=== PATIENT | female | born 1945 | race African-American/Black ===

== ENCOUNTER 2021-05-27 21:24 | Inpatient (IN) ==
[2021-05-27] MEDS: NOREPINEPHRINE 16 MG in SODIUM CHLORIDE 0.9% 234 ML IV PRN (21:30)
[2021-05-27] MEDS ORDERED: NOREPINEPHRINE 4 MG/4 ML VIAL IV ONE (21:48)
[2021-05-27 23:07] LABS: ABG Base Excess -11.3 MMOL/L (-2.5-2.5); ABG HCO3 15.3 MMOL/L (20-26); ABG Oxygen Saturation 92.7 % (95-100); ABG PH 7.415 (7.35-7.45); ABG PO2 67.7 MM HG (80-95); ABG TCO2 11.3 MMOL/L (23-27)
[2021-05-27 23:11] LABS: ABG PCO2 18.8 MM HG (35-48)
[2021-05-28 00:25] LABS: Hematocrit 29.4 VOL% (35.7-47.0); Hemoglobin 8.7 GM/DL (12.0-16.0); Immature Granulocytes % 1.1 %; Immature Granulocytes Absolute 0.04 #; Lymphocytes # 0.7 10*3/uL (1.4-4.0); Lymphocytes % 19.1 % (21.3-54.2); Mean Corpuscular HGB Conc 29.6 GM/DL (32-36); Mean Corpuscular Volume 102.4 FL (87-102); Mean Platelet Volume 10.3 FL (9.6-12.0); Monocytes % 2.7 % (1.7-12.7); NRBC # 0.09 10*3/uL; Neutrophils % 77.1 % (38.7-73.9); Platelet Count 90 T/CUMM (130-400); Red Blood Count 2.87 MC/CUMM (3.8-5.5); Red Cell Distribution Width 23.2 % (9.3-17.3); White Blood Count 3.7 T/CUMM (4-12)
[2021-05-28 00:35] LABS: Albumin 1.7 G/DL (3.4-5.0); Bilirubin,Total 0.7 MG/DL (0.20-1.00); Calcium 8.2 MG/DL (8.5-10.1); Potassium 2.6 MMOL/L (3.5-5.1)
[2021-05-28] MEDS ORDERED: ALBUTEROL 2.5 MG/3 ML NEB RESP TX PRN (01:20)
[2021-05-28] MEDS ORDERED: ONDANSETRON 4 MG/2 ML VIAL IV PRN (01:20)
[2021-05-28] MEDS ORDERED: PIPERACILLIN/TAZOBACTAM 3,375 MG in SODIUM CHLORIDE 0.9% 100 ML IV SCH (02:00)
[2021-05-28] MEDS ORDERED: POTASSIUM CHLORIDE 20 MEQ TABLET PO STA (02:32)
[2021-05-28 04:21] LABS: Band Neutrophils 6 % (0-10); Lymphocytes 23 % (20-55); Metamyelocytes 6 %; Myelocytes 1 %; Nucleated Red Blood Cells 1 (0-5); Segmented Neutrophils 60 % (50-85); Total Cells Counted 100
[2021-05-28 04:22] LABS: Hypochromasia 1+; Macrocytosis 1+; Ovalocytes Slight
[2021-05-28 04:23] LABS: Polychromasia Slight
[2021-05-28] MEDS ORDERED: ACETAMINOPHEN 325 MG TABLET PO PRN (06:16)
[2021-05-28 06:22] LABS: ABG HCO3 12.3 MMOL/L (20-26); ABG Oxygen Saturation 99.1 % (95-100); ABG PH 7.328 (7.35-7.45); ABG TCO2 8.2 MMOL/L (23-27)
[2021-05-28 06:24] LABS: ABG PCO2 16.8 MM HG (35-48)
[2021-05-28] MEDS ORDERED: SODIUM BICARBONATE 50 MEQ/50 ML VIAL IV STA (06:30)
[2021-05-28] MEDS ORDERED: NOREPINEPHRINE 4 MG/4 ML VIAL IV ONE (07:25)
[2021-05-28] MEDS: ALBUTEROL/IPRATROPIUM 3 ML NEB RESP TX SCH ×3 (07:33→20:09)
[2021-05-28] MEDS ORDERED: POTASSIUM CHLORIDE RIDER 10 MEQ/100 ML PREMIX IV PRN (08:34)
[2021-05-28] MEDS: NOREPINEPHRINE 8 MG in SODIUM CHLORIDE 0.9% 242 ML IV PRN ×2 (09:39→10:50)
[2021-05-28] MEDS: ASPIRIN CHEW 81 MG TABLET PO SCH (09:54)
[2021-05-28] MEDS: ROSUVASTATIN 20 MG TABLET PO SCH (09:54)
[2021-05-28] MEDS: methylPREDNISolone SOD SUC 40 MG/1 ML VIAL IV SCH ×2 (09:54→22:32)
[2021-05-28] MEDS: SEVELAMER CARBONATE 800 MG TABLET PO SCH ×3 (09:54→22:32)
[2021-05-28] MEDS ORDERED: POTASSIUM CHLORIDE 20 MEQ TABLET PO ONE (10:00)
[2021-05-28] MEDS ORDERED: NOREPINEPHRINE 16 MG in SODIUM CHLORIDE 0.9% 484 ML IV PRN (10:00)
[2021-05-28] MEDS ORDERED: SODIUM CHLORIDE 0.9% 250 ML IV ONE (10:30)
[2021-05-28] MEDS: INSULIN LISPRO 100 UNIT/ML SUBCUT SCH ×3 (11:49→21:14)
[2021-05-28 11:53] LABS: Basophils % 0.1 % (0.0-0.8); Eosinophils # 0.5 10*3/uL (0.0-0.87); Immature Granulocytes % 1.8 %; Immature Granulocytes Absolute 0.17 #; Lymphocytes # 1.2 10*3/uL (1.4-4.0); Lymphocytes % 12.6 % (21.3-54.2); Mean Corpuscular Volume 95.4 FL (87-102); Mean Platelet Volume 11.8 FL (9.6-12.0); Monocytes % 1.7 % (1.7-12.7); NRBC # 0.24 10*3/uL; Neutrophils % 78.8 % (38.7-73.9); Platelet Count 94 T/CUMM (130-400); Red Blood Count 2.62 MC/CUMM (3.8-5.5); Red Cell Distribution Width 23.2 % (9.3-17.3); White Blood Count 9.3 T/CUMM (4-12)
[2021-05-28 12:14] LABS: Band Neutrophils 16 % (0-10); Hypochromasia Slight; Lymphocytes 17 % (20-55); Metamyelocytes 2 %; Nucleated Red Blood Cells 3 (0-5); Segmented Neutrophils 54 % (50-85); Total Cells Counted 100
[2021-05-28 12:15] LABS: Ovalocytes Few; Polychromasia Slight
[2021-05-28 12:17] LABS: Acanthocytes Few; Anisocytosis 1+; Burr Cells Few; Macrocytosis 1+; Platelet Estimate Decreased
[2021-05-28 12:22] LABS: Calcium 7.7 MG/DL (8.5-10.1); Osmolality,Calculated 289.7 MOS/KG (273-304)
[2021-05-28 12:24] LABS: Potassium 2.3 MMOL/L (3.5-5.1)
[2021-05-28] MEDS ORDERED: POTASSIUM BICARB EFFERVESCENT 20 MEQ TAB.EFF PO ONE (13:00)
[2021-05-28 13:24] LABS: Hepatitis B Core IgM Quant 0.15 Index; Hepatitis B Surface Ag Quant < 0.10 Index; Hepatitis B Surface Ag Result Non-Reactive (NonReactive); Hepatitis C Virus Ab Quant 0.05 Index; Hepatitis C Virus Ab Result Non-Reactive (NonReactive)
[2021-05-28 14:54] LABS: ABG Base Excess -11.7 MMOL/L (-2.5-2.5); ABG HCO3 14.8 MMOL/L (20-26); ABG PCO2 22.9 MM HG (35-48); ABG PH 7.357 (7.35-7.45); ABG PO2 43.2 MM HG (80-95); ABG TCO2 12.3 MMOL/L (23-27)
[2021-05-28] MEDS ORDERED: ZINC OXIDE PASTE 113 GM TUBE TOP PRN (15:12)
[2021-05-28] MEDS: SODIUM BICARB INJ 150 MEQ in DEXTROSE 5% 850 ML IV SCH (15:50)
[2021-05-28] MEDS: CEFEPIME 1,000 MG in SODIUM CHLORIDE 0.9% 100 ML IV SCH (16:00)
[2021-05-28] MEDS ORDERED: SODIUM BICARBONATE 50 MEQ/50 ML VIAL IV ONE (16:07)
[2021-05-28] MEDS ORDERED: DIGOXIN 0.5 MG/2 ML AMP IV ONE ×2 (16:07→17:55)
[2021-05-28] MEDS ORDERED: METOPROLOL TARTRATE 5 MG/5 ML VIAL IV ONE ×2 (16:10→16:15)
[2021-05-28] MEDS ORDERED: DEXTROSE 50% 25 GM/50 ML VIAL IV ONE (16:41)
[2021-05-28] MEDS: DEXTROSE 50% 25 GM/50 ML VIAL IV PRN ×2 (16:46→20:11)
[2021-05-28] MEDS ORDERED: HEPARIN 10,000 UNIT/10 ML VIAL IV ONE (18:15)
[2021-05-28] MEDS: NOREPINEPHRINE 16 MG in SODIUM CHLORIDE 0.9% 234 ML IV PRN ×2 (18:17→23:51)
[2021-05-28 23:20] LABS: ABG Base Excess -7.2 MMOL/L (-2.5-2.5); ABG HCO3 18.5 MMOL/L (20-26); ABG Oxygen Saturation 99.8 % (95-100); ABG PCO2 22.9 MM HG (35-48); ABG PH 7.449 (7.35-7.45); ABG TCO2 14.9 MMOL/L (23-27)
[2021-05-29] MEDS: METOPROLOL TARTRATE 5 MG/5 ML VIAL IV PRN ×2 (00:39→19:32)
[2021-05-29] MEDS: ALBUTEROL/IPRATROPIUM 3 ML NEB RESP TX SCH ×4 (01:26→19:47)
[2021-05-29] MEDS ORDERED: POTASSIUM CHLORIDE RIDER 20 MEQ/100 ML PREMIX IV ONE (02:07)
[2021-05-29] MEDS: POTASSIUM CHLORIDE RIDER 20 MEQ/100 ML PREMIX IV PRN ×2 (02:15→05:55)
[2021-05-29 05:16] LABS: ABG Base Excess -6.5 MMOL/L (-2.5-2.5); ABG Oxygen Saturation 96.1 % (95-100); ABG PCO2 22.5 MM HG (35-48); ABG PH 7.471 (7.35-7.45); ABG PO2 75.3 MM HG (80-95); ABG TCO2 15.5 MMOL/L (23-27)
[2021-05-29] MEDS ORDERED: NOREPINEPHRINE 4 MG/4 ML VIAL IV ONE (05:20)
[2021-05-29] MEDS: NOREPINEPHRINE 16 MG in SODIUM CHLORIDE 0.9% 234 ML IV PRN ×3 (05:27→16:15)
[2021-05-29] MEDS: SODIUM BICARB INJ 150 MEQ in DEXTROSE 5% 850 ML IV SCH (05:28)
[2021-05-29 05:48] LABS: Albumin 1.3 G/DL (3.4-5.0); Bilirubin,Total 1.3 MG/DL (0.20-1.00); Calcium 7.2 MG/DL (8.5-10.1); Potassium 4.1 MMOL/L (3.5-5.1); Total Protein 4.2 G/DL (6.4-8.2)
[2021-05-29] MEDS: ASPIRIN CHEW 81 MG TABLET PO SCH (08:42)
[2021-05-29] MEDS: INSULIN LISPRO 100 UNIT/ML SUBCUT SCH ×4 (08:42→22:01)
[2021-05-29] MEDS: ROSUVASTATIN 20 MG TABLET PO SCH (08:42)
[2021-05-29] MEDS: methylPREDNISolone SOD SUC 40 MG/1 ML VIAL IV SCH ×2 (08:42→22:15)
[2021-05-29] MEDS: SEVELAMER CARBONATE 800 MG TABLET PO SCH ×3 (08:42→22:03)
[2021-05-29 09:13] LABS: ABG Base Excess -5.9 MMOL/L (-2.5-2.5); ABG HCO3 16.9 MMOL/L (20-26); ABG Oxygen Saturation 97.7 % (95-100); ABG PCO2 23.3 MM HG (35-48); ABG PH 7.478 (7.35-7.45); ABG PO2 97.3 MM HG (80-95); ABG TCO2 17.6 MMOL/L (23-27)
[2021-05-29] MEDS ORDERED: MAGNESIUM SULF RIDER 2 GM/50 ML PREMIX IV ONE (10:17)
[2021-05-29] MEDS: AZITHROMYCIN INJ 500 MG in SODIUM CHLORIDE 0.9% 250 ML IV SCH (13:21)
[2021-05-29] MEDS: ALBUMIN 25% 25 GM/100 ML VIAL IV SCH ×2 (13:21→22:01)
[2021-05-29] MEDS: CEFEPIME 1,000 MG in SODIUM CHLORIDE 0.9% 100 ML IV SCH (14:30)
[2021-05-29] MEDS ORDERED: SODIUM PHOSPHATE INJ 30 MMOL in SODIUM CHLORIDE 0.9% 250 ML IV ONE (15:00)
[2021-05-29] MEDS: DIGOXIN 0.125 MG TABLET PO SCH (15:41)
[2021-05-30] MEDS: ALBUTEROL/IPRATROPIUM 3 ML NEB RESP TX SCH ×4 (01:20→19:00)
[2021-05-30] MEDS: SODIUM BICARB INJ 150 MEQ in DEXTROSE 5% 850 ML IV SCH (02:30)
[2021-05-30] MEDS: METOPROLOL TARTRATE 5 MG/5 ML VIAL IV PRN (02:30)
[2021-05-30 05:24] LABS: ABG HCO3 23.9 MMOL/L (20-26); ABG Oxygen Saturation 96.4 % (95-100); ABG PCO2 34.6 MM HG (35-48); ABG PH 7.458 (7.35-7.45); ABG PO2 86.9 MM HG (80-95)
[2021-05-30] MEDS: ALBUMIN 25% 25 GM/100 ML VIAL IV SCH (05:30)
[2021-05-30] MEDS: NOREPINEPHRINE 16 MG in SODIUM CHLORIDE 0.9% 234 ML IV PRN ×2 (06:05→15:05)
[2021-05-30 06:10] LABS: Albumin 2.2 G/DL (3.4-5.0); Osmolality,Calculated 289.1 MOS/KG (273-304); Potassium 3.8 MMOL/L (3.5-5.1); Total Protein 4.7 G/DL (6.4-8.2)
[2021-05-30 06:12] LABS: Basophils % 0.1 % (0.0-0.8); Immature Granulocytes % 3.6 %; Immature Granulocytes Absolute 0.64 #; Lymphocytes # 0.8 10*3/uL (1.4-4.0); Lymphocytes % 4.5 % (21.3-54.2); Mean Corpuscular HGB Conc 32.1 GM/DL (32-36); Mean Corpuscular Volume 95.5 FL (87-102); Mean Platelet Volume 11.7 FL (9.6-12.0); Monocytes % 4.2 % (1.7-12.7); NRBC # 0.16 10*3/uL; Neutrophils % 87.6 % (38.7-73.9); Platelet Count 56 T/CUMM (130-400); Red Blood Count 1.76 MC/CUMM (3.8-5.5); Red Cell Distribution Width 22.9 % (9.3-17.3); White Blood Count 17.9 T/CUMM (4-12)
[2021-05-30 06:14] LABS: Hematocrit 16.8 VOL% (35.7-47.0); Hemoglobin 5.4 GM/DL (12.0-16.0)
[2021-05-30 06:23] LABS: Band Neutrophils 4 % (0-10); Hypochromasia 2+; Lymphocytes 6 % (20-55); Microcytosis 1+; Nucleated Red Blood Cells 3 (0-5); Ovalocytes Slight; Platelet Estimate Decreased; Segmented Neutrophils 87 % (50-85); Total Cells Counted 100
[2021-05-30] MEDS: INSULIN LISPRO 100 UNIT/ML SUBCUT SCH ×4 (08:50→21:04)
[2021-05-30] MEDS: ASPIRIN CHEW 81 MG TABLET PO SCH (08:50)
[2021-05-30] MEDS: SEVELAMER CARBONATE 800 MG TABLET PO SCH ×3 (08:50→21:05)
[2021-05-30] MEDS: ROSUVASTATIN 20 MG TABLET PO SCH (08:50)
[2021-05-30] MEDS: methylPREDNISolone SOD SUC 40 MG/1 ML VIAL IV SCH ×2 (09:38→21:05)
[2021-05-30] MEDS ORDERED: SODIUM CHLORIDE 0.9% IV ONE (12:00)
[2021-05-30] MEDS ORDERED: POTASSIUM PHOSPHATE 30 MMOL in SODIUM CHLORIDE 0.9% 250 ML IV ONE (12:00)
[2021-05-30] MEDS ORDERED: POTASSIUM PHOSPHATE IV ONE (12:00)
[2021-05-30] MEDS: AZITHROMYCIN INJ 500 MG in SODIUM CHLORIDE 0.9% 250 ML IV SCH (13:50)
[2021-05-30] MEDS: DIGOXIN 0.125 MG TABLET PO SCH (13:50)
[2021-05-30] MEDS ORDERED: CALCIUM GLUCONATE 1,000 MG in SODIUM CHLORIDE 0.9% 100 ML IV ONE (14:00)
[2021-05-30 15:22] LABS: INR 1.5; PT Patient Result 16.7 SECS (10.5-12.0)
[2021-05-30] MEDS: CEFEPIME 1,000 MG in SODIUM CHLORIDE 0.9% 100 ML IV SCH (16:36)
[2021-05-30] MEDS ORDERED: HEPARIN 10,000 UNIT/10 ML VIAL IV ONE (17:30)
[2021-05-30 18:29] LABS: Hematocrit 31.2 VOL% (35.7-47.0); Hemoglobin 10.2 GM/DL (12.0-16.0)
[2021-05-31] MEDS: ALBUTEROL/IPRATROPIUM 3 ML NEB RESP TX SCH ×4 (00:55→20:15)
[2021-05-31] MEDS: NOREPINEPHRINE 16 MG in SODIUM CHLORIDE 0.9% 234 ML IV PRN ×2 (01:16→11:19)
[2021-05-31 04:30] LABS: ABG Base Excess 5.7 MMOL/L (-2.5-2.5); ABG HCO3 29.5 MMOL/L (20-26); ABG Oxygen Saturation 91.6 % (95-100); ABG PCO2 37.7 MM HG (35-48); ABG PH 7.497 (7.35-7.45); ABG PO2 58.9 MM HG (80-95); ABG TCO2 26.9 MMOL/L (23-27)
[2021-05-31 04:45] LABS: Basophils # 0.1 10*3/uL (0.0-0.2); Basophils % 0.3 % (0.0-0.8); Eosinophils % 0.2 % (0.00-10.9); Hematocrit 26.8 VOL% (35.7-47.0); Hemoglobin 8.6 GM/DL (12.0-16.0); Immature Granulocytes % 8.8 %; Immature Granulocytes Absolute 1.47 #; Lymphocytes % 5.7 % (21.3-54.2); Mean Corpuscular HGB Conc 32.1 GM/DL (32-36); Mean Corpuscular Volume 90.5 FL (87-102); Mean Platelet Volume 12.4 FL (9.6-12.0); Monocytes % 6.7 % (1.7-12.7); NRBC # 0.31 10*3/uL; Neutrophils % 78.3 % (38.7-73.9); Red Blood Count 2.96 MC/CUMM (3.8-5.5); Red Cell Distribution Width 18.8 % (9.3-17.3); White Blood Count 16.8 T/CUMM (4-12)
[2021-05-31 04:46] LABS: Platelet Count 45 T/CUMM (130-400)
[2021-05-31 05:02] LABS: Lymphocytes 5 % (20-55); Nucleated Red Blood Cells 2 (0-5); Segmented Neutrophils 91 % (50-85); Total Cells Counted 100
[2021-05-31 05:03] LABS: Hypochromasia 1+; Microcytosis 1+; Ovalocytes Slight; Platelet Estimate Decreased
[2021-05-31 05:24] LABS: Bilirubin,Total 1.6 MG/DL (0.20-1.00); Calcium 6.7 MG/DL (8.5-10.1); Osmolality,Calculated 285.1 MOS/KG (273-304); Potassium 4.1 MMOL/L (3.5-5.1); Total Protein 4.8 G/DL (6.4-8.2)
[2021-05-31] MEDS ORDERED: ROCURONIUM 500 MG in SODIUM CHLORIDE 0.9% 500 ML IV PRN (06:47)
[2021-05-31] MEDS: INSULIN LISPRO 100 UNIT/ML SUBCUT SCH ×4 (08:23→21:10)
[2021-05-31] MEDS: SEVELAMER CARBONATE 800 MG TABLET PO SCH ×3 (09:35→21:11)
[2021-05-31] MEDS: methylPREDNISolone SOD SUC 40 MG/1 ML VIAL IV SCH ×2 (09:35→21:10)
[2021-05-31] MEDS: ROSUVASTATIN 20 MG TABLET PO SCH (09:35)
[2021-05-31] MEDS: ASPIRIN CHEW 81 MG TABLET PO SCH (09:35)
[2021-05-31] MEDS ORDERED: CALCIUM GLUCONATE 1,000 MG in SODIUM CHLORIDE 0.9% 100 ML IV ONE (10:00)
[2021-05-31] MEDS ORDERED: POTASSIUM PHOSPHATE 30 MMOL in SODIUM CHLORIDE 0.9% 250 ML IV ONE (11:00)
[2021-05-31] MEDS: DIGOXIN 0.125 MG TABLET PO SCH (14:00)
[2021-05-31] MEDS: AZITHROMYCIN INJ 500 MG in SODIUM CHLORIDE 0.9% 250 ML IV SCH (14:00)
[2021-05-31 15:01] VITALS: BP 124/60
[2021-05-31 15:47] LABS: Glucose,CSF 121 MG/DL (40-70)
[2021-05-31 15:54] LABS: Appearance,CSF Clear; Lymphocytes,CSF 20 %; Monocytes,CSF 80 %; Red Blood Cell,CSF < 1 C/CUMM; White Blood Cell,CSF 5 C/CUMM
[2021-05-31] MEDS: CEFEPIME 1,000 MG in SODIUM CHLORIDE 0.9% 100 ML IV SCH (16:25)
[2021-06-01] MEDS: ALBUTEROL/IPRATROPIUM 3 ML NEB RESP TX SCH ×5 (00:10→18:14)
[2021-06-01] MEDS: NOREPINEPHRINE 16 MG in SODIUM CHLORIDE 0.9% 234 ML IV PRN ×2 (01:40→18:44)
[2021-06-01 05:06] LABS: ABG Base Excess 0.8 MMOL/L (-2.5-2.5); ABG HCO3 25.1 MMOL/L (20-26); ABG Oxygen Saturation 92.5 % (95-100); ABG PCO2 37.2 MM HG (35-48); ABG PH 7.434 (7.35-7.45); ABG PO2 63.5 MM HG (80-95); ABG TCO2 23.2 MMOL/L (23-27)
[2021-06-01 05:18] LABS: Basophils % 0.2 % (0.0-0.8); Eosinophils % 0.1 % (0.00-10.9); Hematocrit 25.7 VOL% (35.7-47.0); Hemoglobin 8.4 GM/DL (12.0-16.0); Immature Granulocytes % 6.3 %; Immature Granulocytes Absolute 0.85 #; Lymphocytes # 0.7 10*3/uL (1.4-4.0); Lymphocytes % 5.3 % (21.3-54.2); Mean Corpuscular HGB Conc 32.7 GM/DL (32-36); Mean Corpuscular Volume 92.4 FL (87-102); Mean Platelet Volume 11.5 FL (9.6-12.0); Monocytes % 7.5 % (1.7-12.7); NRBC # 0.35 10*3/uL; Neutrophils % 80.6 % (38.7-73.9); Platelet Count 43 T/CUMM (130-400); Red Blood Count 2.78 MC/CUMM (3.8-5.5); Red Cell Distribution Width 18.9 % (9.3-17.3); White Blood Count 13.6 T/CUMM (4-12)
[2021-06-01 05:38] LABS: Calcium 6.2 MG/DL (8.5-10.1); Osmolality,Calculated 292.1 MOS/KG (273-304); Potassium 4.5 MMOL/L (3.5-5.1)
[2021-06-01 05:54] LABS: Anisocytosis 3+; Band Neutrophils 21 % (0-10); Lymphocytes 8 % (20-55); Nucleated Red Blood Cells 4 (0-5); Platelet Estimate Decreased; Segmented Neutrophils 66 % (50-85); Smudge Cells Few; Target Cells Few; Total Cells Counted 100
[2021-06-01 05:55] LABS: Toxic Granulation 1+
[2021-06-01 05:56] LABS: Macrocytosis 1+; Ovalocytes Few; Polychromasia Slight
[2021-06-01] MEDS: INSULIN LISPRO 100 UNIT/ML SUBCUT SCH ×4 (08:00→21:38)
[2021-06-01] MEDS: ASPIRIN CHEW 81 MG TABLET PO SCH (08:00)
[2021-06-01] MEDS: ROSUVASTATIN 20 MG TABLET PO SCH (08:00)
[2021-06-01] MEDS: SEVELAMER CARBONATE 800 MG TABLET PO SCH ×3 (08:00→21:56)
[2021-06-01] MEDS: methylPREDNISolone SOD SUC 40 MG/1 ML VIAL IV SCH ×2 (08:01→21:55)
[2021-06-01] MEDS: MICAFUNGIN 100 MG in SODIUM CHLORIDE 0.9% 100 ML IV SCH (08:55)
[2021-06-01] MEDS: INSULIN GLARGINE 100 UNIT/ML SUBCUT SCH (08:55)
[2021-06-01 12:36] LABS: VDRL Spinal Fluid Negative (Negative)
[2021-06-01] MEDS: DIGOXIN 0.125 MG TABLET PO SCH (13:10)
[2021-06-01] MEDS: AZITHROMYCIN INJ 500 MG in SODIUM CHLORIDE 0.9% 250 ML IV SCH (13:11)
[2021-06-01] MEDS: CEFEPIME 1,000 MG in SODIUM CHLORIDE 0.9% 100 ML IV SCH (15:51)
[2021-06-01] MEDS ORDERED: CALCIUM GLUCONATE 1,000 MG in SODIUM CHLORIDE 0.9% 100 ML IV ONE ×2 (16:59→17:03)
[2021-06-01] MEDS ORDERED: CALCIUM GLUCONATE 1,000 MG/10 ML VIAL IV ONE (16:59)
[2021-06-01] MEDS: CALCIUM CHLORIDE 1,000 MG/10 ML SYRINGE IV ONE ×2 (17:03→17:26)
[2021-06-01 17:16] LABS: Basophils % 0.2 % (0.0-0.8); Hematocrit 27.4 VOL% (35.7-47.0); Hemoglobin 8.6 GM/DL (12.0-16.0); Immature Granulocytes % 5.8 %; Immature Granulocytes Absolute 0.82 #; Lymphocytes # 0.6 10*3/uL (1.4-4.0); Lymphocytes % 4.2 % (21.3-54.2); Mean Corpuscular HGB Conc 31.4 GM/DL (32-36); Mean Corpuscular Volume 93.8 FL (87-102); Mean Platelet Volume 11.7 FL (9.6-12.0); Monocytes % 5.9 % (1.7-12.7); NRBC # 0.39 10*3/uL; Neutrophils % 83.9 % (38.7-73.9); Red Blood Count 2.92 MC/CUMM (3.8-5.5); Red Cell Distribution Width 19.4 % (9.3-17.3); White Blood Count 14.1 T/CUMM (4-12)
[2021-06-01 17:18] LABS: Platelet Count 53 T/CUMM (130-400)
[2021-06-01 17:45] LABS: Band Neutrophils 6 % (0-10); Lymphocytes 4 % (20-55); Metamyelocytes 2 %; Nucleated Red Blood Cells 8 (0-5); Segmented Neutrophils 82 % (50-85); Total Cells Counted 100
[2021-06-01 17:46] LABS: Platelet Estimate Decreased; Polychromasia 1+; Toxic Granulation 1+
[2021-06-01 17:47] LABS: Anisocytosis 2+; Macrocytosis 2+; Microcytosis 1+; Schistocytes Slight
[2021-06-01 17:48] LABS: Poikilocytosis Slight
[2021-06-01 17:56] LABS: Albumin 1.8 G/DL (3.4-5.0); Bilirubin,Total 0.6 MG/DL (0.20-1.00); Calcium 7.6 MG/DL (8.5-10.1); Osmolality,Calculated 275.7 MOS/KG (273-304)
[2021-06-01] MEDS: POTASSIUM CHLORIDE RIDER 20 MEQ/100 ML PREMIX IV PRN ×2 (18:16→21:56)
[2021-06-01] MEDS: METOPROLOL TARTRATE 5 MG/5 ML VIAL IV PRN (21:55)
[2021-06-02 04:18] LABS: Basophils % 0.2 % (0.0-0.8); Hematocrit 28.5 VOL% (35.7-47.0); Hemoglobin 9.1 GM/DL (12.0-16.0); Immature Granulocytes % 5.2 %; Immature Granulocytes Absolute 0.65 #; Lymphocytes # 0.6 10*3/uL (1.4-4.0); Lymphocytes % 4.4 % (21.3-54.2); Mean Corpuscular HGB Conc 31.9 GM/DL (32-36); Mean Corpuscular Volume 92.2 FL (87-102); Monocytes % 6.2 % (1.7-12.7); NRBC # 0.34 10*3/uL; Platelet Count 59 T/CUMM (130-400); Red Blood Count 3.09 MC/CUMM (3.8-5.5); Red Cell Distribution Width 19.1 % (9.3-17.3); White Blood Count 12.6 T/CUMM (4-12)
[2021-06-02 04:31] LABS: Calcium 6.6 MG/DL (8.5-10.1); Osmolality,Calculated 279.7 MOS/KG (273-304); Potassium 4.6 MMOL/L (3.5-5.1)
[2021-06-02 04:37] LABS: Band Neutrophils 1 % (0-10); Hypochromasia 1+; Lymphocytes 6 % (20-55); Microcytosis 1+; Nucleated Red Blood Cells 8 (0-5); Platelet Estimate Decreased; Segmented Neutrophils 90 % (50-85); Total Cells Counted 100
[2021-06-02] MEDS: ALBUTEROL/IPRATROPIUM 3 ML NEB RESP TX SCH ×4 (05:01→20:34)
[2021-06-02] MEDS: MICAFUNGIN 100 MG in SODIUM CHLORIDE 0.9% 100 ML IV SCH (08:26)
[2021-06-02] MEDS: methylPREDNISolone SOD SUC 40 MG/1 ML VIAL IV SCH ×2 (08:26→22:14)
[2021-06-02] MEDS: INSULIN LISPRO 100 UNIT/ML SUBCUT SCH ×4 (08:27→22:10)
[2021-06-02] MEDS: INSULIN GLARGINE 100 UNIT/ML SUBCUT SCH (08:27)
[2021-06-02] MEDS: ROSUVASTATIN 20 MG TABLET PO SCH (08:28)
[2021-06-02] MEDS: SEVELAMER CARBONATE 800 MG TABLET PO SCH ×3 (08:28→22:15)
[2021-06-02] MEDS: ASPIRIN CHEW 81 MG TABLET PO SCH (08:28)
[2021-06-02] MEDS: METOPROLOL TARTRATE 5 MG/5 ML VIAL IV PRN (12:20)
[2021-06-02] MEDS ORDERED: CALCIUM GLUCONATE 1,000 MG in SODIUM CHLORIDE 0.9% 100 ML IV ONE (13:30)
[2021-06-02] MEDS ORDERED: POTASSIUM PHOSPHATE 30 MMOL in SODIUM CHLORIDE 0.9% 250 ML IV ONE (13:30)
[2021-06-02] MEDS ORDERED: CHOLESTYRAMINE/ASPARTAME 4 GM PACK PO PRN (13:31)
[2021-06-02] MEDS: DIGOXIN 0.125 MG TABLET PO SCH (13:32)
[2021-06-02] MEDS: AZITHROMYCIN INJ 500 MG in SODIUM CHLORIDE 0.9% 250 ML IV SCH (13:32)
[2021-06-02] MEDS: NOREPINEPHRINE 16 MG in SODIUM CHLORIDE 0.9% 234 ML IV PRN (13:43)
[2021-06-02] MEDS: CEFEPIME 1,000 MG in SODIUM CHLORIDE 0.9% 100 ML IV SCH (15:54)
[2021-06-02 17:46] LABS: CSF Crypto neoforman/gatti PCR Negative (Negative); CSF Cytomegalovirus PCR Negative (Negative); CSF Enterovirus PCR Negative (Negative); CSF Escherichia coli K1 PCR Negative (Negative); CSF Haemophilus influenzae PCR Negative (Negative); CSF Herpes Simplex Virus 1 PCR Negative (Negative); CSF Herpes Simplex Virus 2 PCR Negative (Negative); CSF Human Herpes Virus 6 PCR Negative (Negative); CSF Human Parechovirus PCR Negative (Negative); CSF Listeria monocytogenes PCR Negative (Negative); CSF Neisseria meningitidis PCR Negative (Negative); CSF Streptococcus agalacti PCR Negative (Negative); CSF Streptococcus pneumon PCR Negative (Negative); CSF Varicella Zoster Virus PCR Negative (Negative); Specimen source CEREBROSPINAL FLUID
[2021-06-02] MEDS: VANCOMYCIN 50 MG/ML 60 ML/BOTTLE PO SCH (18:06)
[2021-06-02] MEDS: DEXTROSE 50% 25 GM/50 ML VIAL IV PRN (23:35)
[2021-06-03] MEDS: VANCOMYCIN 50 MG/ML 60 ML/BOTTLE PO SCH ×4 (00:59→17:13)
[2021-06-03] MEDS: ALBUTEROL/IPRATROPIUM 3 ML NEB RESP TX SCH ×4 (02:29→18:50)
[2021-06-03 04:31] LABS: Basophils # 0.1 10*3/uL (0.0-0.2); Basophils % 0.3 % (0.0-0.8); Hematocrit 31.8 VOL% (35.7-47.0); Hemoglobin 9.8 GM/DL (12.0-16.0); Immature Granulocytes % 1.8 %; Immature Granulocytes Absolute 0.34 #; Lymphocytes % 5.2 % (21.3-54.2); Mean Corpuscular HGB Conc 30.8 GM/DL (32-36); Mean Corpuscular Volume 94.6 FL (87-102); Monocytes % 3.5 % (1.7-12.7); NRBC # 0.39 10*3/uL; Neutrophils % 89.2 % (38.7-73.9); Red Blood Count 3.36 MC/CUMM (3.8-5.5); White Blood Count 18.5 T/CUMM (4-12)
[2021-06-03 04:38] LABS: Platelet Count 68 T/CUMM (130-400)
[2021-06-03 04:42] LABS: Calcium 6.7 MG/DL (8.5-10.1); Osmolality,Calculated 284.3 MOS/KG (273-304); Potassium 5.1 MMOL/L (3.5-5.1)
[2021-06-03 04:51] LABS: Band Neutrophils 4 % (0-10); Hypochromasia 1+; Lymphocytes 4 % (20-55); Microcytosis 1+; Nucleated Red Blood Cells 4 (0-5); Platelet Estimate Decreased; Segmented Neutrophils 88 % (50-85); Total Cells Counted 100
[2021-06-03] MEDS: NOREPINEPHRINE 16 MG in SODIUM CHLORIDE 0.9% 234 ML IV PRN (06:25)
[2021-06-03] MEDS: INSULIN LISPRO 100 UNIT/ML SUBCUT SCH ×3 (07:14→18:39)
[2021-06-03] MEDS: ROSUVASTATIN 20 MG TABLET PO SCH (08:19)
[2021-06-03] MEDS: ASPIRIN CHEW 81 MG TABLET PO SCH (08:19)
[2021-06-03] MEDS: INSULIN GLARGINE 100 UNIT/ML SUBCUT SCH (08:20)
[2021-06-03] MEDS: SEVELAMER CARBONATE 800 MG TABLET PO SCH ×3 (08:20→21:53)
[2021-06-03] MEDS: methylPREDNISolone SOD SUC 40 MG/1 ML VIAL IV SCH ×2 (08:20→21:52)
[2021-06-03] MEDS: MICAFUNGIN 100 MG in SODIUM CHLORIDE 0.9% 100 ML IV SCH (09:38)
[2021-06-03] MEDS: HYDROCORTISONE 100 MG VIAL IV SCH ×2 (09:39→16:42)
[2021-06-03] MEDS ORDERED: CALCIUM GLUCONATE 1,000 MG in SODIUM CHLORIDE 0.9% 100 ML IV ONE (09:43)
[2021-06-03] MEDS: FAMOTIDINE 20 MG/2 ML VIAL IV SCH (09:58)
[2021-06-03 11:08] LABS: ABG Base Excess -4.9 MMOL/L (-2.5-2.5); ABG HCO3 20.2 MMOL/L (20-26); ABG Oxygen Saturation 93.1 % (95-100); ABG PCO2 31.9 MM HG (35-48); ABG PH 7.389 (7.35-7.45); ABG PO2 71.7 MM HG (80-95); ABG TCO2 17.7 MMOL/L (23-27)
[2021-06-03] MEDS ORDERED: ROCURONIUM 100 MG/10 ML VIAL IV ONE ×2 (12:07→12:30)
[2021-06-03] MEDS ORDERED: ETOMIDATE 20 MG/10 ML VIAL IV ONE ×2 (12:07→12:30)
[2021-06-03] MEDS: fentaNYL INJ 1,250 MCG in SODIUM CHLORIDE 0.9% 225 ML IV PRN (13:26)
[2021-06-03] MEDS: MIDAZOLAM 100 MG in SODIUM CHLORIDE 0.9% 80 ML IV PRN (13:27)
[2021-06-03 13:39] LABS: ABG Base Excess -8.3 MMOL/L (-2.5-2.5); ABG HCO3 18.4 MMOL/L (20-26); ABG Oxygen Saturation 99.2 % (95-100); ABG PCO2 42.3 MM HG (35-48); ABG PH 7.256 (7.35-7.45); ABG PO2 333.7 MM HG (80-95); ABG TCO2 19.7 MMOL/L (23-27)
[2021-06-03] MEDS: DIGOXIN 0.125 MG TABLET PO SCH (13:41)
[2021-06-03] MEDS: PHENYLEPHRINE DRIP 40 MG/250 ML PREMIX IV PRN ×2 (13:49→17:10)
[2021-06-03] MEDS: CEFEPIME 1,000 MG in SODIUM CHLORIDE 0.9% 100 ML IV SCH (16:09)
[2021-06-03] MEDS ORDERED: PHENYLEPHRINE INJ 160 MG in SODIUM CHLORIDE 0.9% 234 ML IV SCH (17:30)
[2021-06-03] MEDS: DEXTROSE 50% 25 GM/50 ML VIAL IV PRN ×2 (17:53→21:10)
[2021-06-04] MEDS: VANCOMYCIN 50 MG/ML 60 ML/BOTTLE PO SCH ×5 (00:04→18:03)
[2021-06-04] MEDS: INSULIN LISPRO 100 UNIT/ML SUBCUT SCH ×4 (00:05→18:03)
[2021-06-04] MEDS: ALBUTEROL/IPRATROPIUM 3 ML NEB RESP TX SCH ×4 (01:08→20:21)
[2021-06-04] MEDS: PHENYLEPHRINE INJ 160 MG in SODIUM CHLORIDE 0.9% 234 ML IV PRN ×4 (01:27→18:04)
[2021-06-04] MEDS: HYDROCORTISONE 100 MG VIAL IV SCH ×3 (01:28→18:01)
[2021-06-04] MEDS ORDERED: DEXTROSE 10% 1,000 ML IV SCH (01:30)
[2021-06-04] MEDS: fentaNYL INJ 1,250 MCG in SODIUM CHLORIDE 0.9% 225 ML IV PRN (02:18)
[2021-06-04] MEDS: DEXTROSE 50% 25 GM/50 ML VIAL IV PRN (03:44)
[2021-06-04] MEDS: MIDAZOLAM 100 MG in SODIUM CHLORIDE 0.9% 80 ML IV PRN (04:09)
[2021-06-04 04:51] LABS: ABG Base Excess -22.8 MMOL/L (-2.5-2.5); ABG HCO3 7.9 MMOL/L (20-26); ABG Oxygen Saturation 96.5 % (95-100); ABG PCO2 33.3 MM HG (35-48); ABG TCO2 7.8 MMOL/L (23-27)
[2021-06-04 04:59] LABS: ABG PH 6.973 (7.35-7.45)
[2021-06-04] MEDS ORDERED: SODIUM BICARBONATE 50 MEQ/50 ML VIAL IV ONE ×3 (05:10→18:57)
[2021-06-04] MEDS ORDERED: SODIUM BICARB INJ 150 MEQ in STERILE WATER INJ 1,000 ML IV SCH (05:30)
[2021-06-04 05:48] LABS: Calcium 6.7 MG/DL (8.5-10.1); Osmolality,Calculated 284.5 MOS/KG (273-304)
[2021-06-04 06:06] LABS: Potassium 6.7 MMOL/L (3.5-5.1)
[2021-06-04] MEDS ORDERED: INSULIN REGULAR 10 UNIT, CALCIUM GLUCONATE 1,000 MG in DEXTROSE 10% 250 ML IV ONE (06:08)
[2021-06-04 06:35] LABS: Basophils # 0.1 10*3/uL (0.0-0.2); Basophils % 0.3 % (0.0-0.8); Eosinophils % 0.1 % (0.00-10.9); Hematocrit 30.7 VOL% (35.7-47.0); Immature Granulocytes % 8.6 %; Immature Granulocytes Absolute 1.89 #; Lymphocytes # 1.1 10*3/uL (1.4-4.0); Mean Corpuscular HGB Conc 27.4 GM/DL (32-36); Mean Corpuscular Volume 108.9 FL (87-102); Mean Platelet Volume 12.5 FL (9.6-12.0); Monocytes % 5.2 % (1.7-12.7); Neutrophils % 80.8 % (38.7-73.9); Platelet Count 64 T/CUMM (130-400); Red Blood Count 2.82 MC/CUMM (3.8-5.5); Red Cell Distribution Width 21.6 % (9.3-17.3); White Blood Count 21.9 T/CUMM (4-12)
[2021-06-04 06:42] LABS: Hemoglobin 8.4 GM/DL (12.0-16.0)
[2021-06-04 06:57] LABS: Band Neutrophils 3 % (0-10); Hypochromasia 1+; Lymphocytes 9 % (20-55); Microcytosis 1+; Nucleated Red Blood Cells 7 (0-5); Platelet Estimate Decreased; Segmented Neutrophils 84 % (50-85); Total Cells Counted 100
[2021-06-04] MEDS: NOREPINEPHRINE 16 MG in SODIUM CHLORIDE 0.9% 234 ML IV PRN ×4 (07:27→20:27)
[2021-06-04] MEDS: ROSUVASTATIN 20 MG TABLET PO SCH (08:51)
[2021-06-04] MEDS: ASPIRIN CHEW 81 MG TABLET PO SCH (08:51)
[2021-06-04] MEDS: SEVELAMER CARBONATE 800 MG TABLET PO SCH ×3 (08:52→20:24)
[2021-06-04] MEDS: methylPREDNISolone SOD SUC 40 MG/1 ML VIAL IV SCH (08:52)
[2021-06-04] MEDS: INSULIN GLARGINE 100 UNIT/ML SUBCUT SCH (08:57)
[2021-06-04] MEDS: MICAFUNGIN 100 MG in SODIUM CHLORIDE 0.9% 100 ML IV SCH (08:57)
[2021-06-04] MEDS ORDERED: CALCIUM GLUCONATE 1,000 MG in SODIUM CHLORIDE 0.9% 100 ML IV ONE (09:30)
[2021-06-04] MEDS: FAMOTIDINE 20 MG/2 ML VIAL IV SCH (09:57)
[2021-06-04 10:19] LABS: ABG Base Excess -21.9 MMOL/L (-2.5-2.5); ABG Oxygen Saturation 93.5 % (95-100); ABG PCO2 32.1 MM HG (35-48)
[2021-06-04 10:33] LABS: ABG HCO3 8.4 MMOL/L (20-26)
[2021-06-04] MEDS ORDERED: ALBUMIN 25% 25 GM/100 ML VIAL IV ONE (10:51)
[2021-06-04] MEDS ORDERED: VANCOMYCIN INJ 750 MG in SODIUM CHLORIDE 0.9% 250 ML IV PRN (11:25)
[2021-06-04] MEDS ORDERED: VANCOMYCIN INJ 2,250 MG in SODIUM CHLORIDE 0.9% 500 ML IV ONE (12:30)
[2021-06-04] MEDS: DIGOXIN 0.125 MG TABLET PO SCH (14:11)
[2021-06-04] MEDS ORDERED: HEPARIN 10,000 UNIT/10 ML VIAL IV SCH (14:45)
[2021-06-04] MEDS ORDERED: ALBUMIN 25% 25 GM/100 ML VIAL IV SCH (15:00)
[2021-06-04 15:21] LABS: West Nile Virus Ab, IgG, CSF Negative (Negative); West Nile Virus Ab, IgM, CSF Negative (Negative)
[2021-06-04 15:30] LABS: ABG Base Excess -19.4 MMOL/L (-2.5-2.5); ABG HCO3 9.8 MMOL/L (20-26); ABG Oxygen Saturation 91.1 % (95-100); ABG PCO2 28.4 MM HG (35-48); ABG PO2 79.9 MM HG (80-95); ABG TCO2 8.7 MMOL/L (23-27)
[2021-06-04 15:31] LABS: Calcium 6.4 MG/DL (8.5-10.1); Osmolality,Calculated 281.3 MOS/KG (273-304); Potassium 5.7 MMOL/L (3.5-5.1)
[2021-06-04 15:36] LABS: ABG PH 7.106 (7.35-7.45)
[2021-06-04] MEDS: metroNIDAZOLE INJ 500 MG/100 ML PREMIX IV SCH ×2 (15:36→20:19)
[2021-06-04] MEDS ORDERED: SODIUM ZIRCONIUM CYCLOSILICATE 10 GM PACK PO SCH (17:00)
[2021-06-05] MEDS: NOREPINEPHRINE 16 MG in SODIUM CHLORIDE 0.9% 234 ML IV PRN (00:06)
[2021-06-05] MEDS: ALBUTEROL/IPRATROPIUM 3 ML NEB RESP TX SCH (00:23)
[2021-06-05] MEDS: VANCOMYCIN 50 MG/ML 60 ML/BOTTLE PO SCH (00:59)
[2021-06-05] MEDS: INSULIN LISPRO 100 UNIT/ML SUBCUT SCH (00:59)
[2021-06-05] MEDS: HYDROCORTISONE 100 MG VIAL IV SCH (01:14)
[2021-06-05] MEDS: PHENYLEPHRINE INJ 160 MG in SODIUM CHLORIDE 0.9% 234 ML IV PRN (01:24)
[2021-06-05] MEDS ORDERED: MULTIVITAMIN (BEROCCA) TABLET PO SCH (09:00)
== END 2021-06-05 01:43 | disposition expired | DRG 871 ==
LOC: N.ED 21:24 → SUATTDRO 05-28 01:20 → N.EDINP 05-28 01:20 → N.CC 05-28 03:41
PROVIDERS: ADMIT Internal Medicine; ATTEND Internal Medicine